=== PATIENT | female | born 2000 | race Asian ===

== ENCOUNTER 2022-01-11 15:58 | Emergency (ER) | payer OTHER ==
[~2022-01-11] VITALS: Ht 162.6 cm; Wt 77.1 kg
[2022-01-11 16:25] VITALS: BP_SYST 124
--- NOTE | 2022-01-11 16:28 | NUR ---
PT TRIAGED AND PLACED IN WAITING ROOM FOR AVAILABLE BED IN MAIN ED
[2022-01-11 17:14] LABS: BILIRUBIN,URINE NEGATIVE (NEGATIVE); BLOOD, URINE 3+ (NEGATIVE); COLOR,URINE YELLOW (YELLOW); GLUCOSE,URINE NEGATIVE (NEGATIVE); KETONES,URINE NEGATIVE (NEGATIVE); LEUKOCYTE ESTERASE ,URINE NEGATIVE (NEGATIVE); NITRITE, URINE NEGATIVE (NEGATIVE); PROTEIN URINE TRACE (NEGATIVE); UROBILINOGEN,URINE 0.2 (0.2-1.0)
[2022-01-11 17:16] LABS: CLARITY/URINE SLIGHTLY HAZY (CLEAR)
--- NOTE | 2022-01-11 17:24 | NUR ---
Patient to ER bed H1 to gown for evaluation. Side rails up.
[2022-01-11 17:25] LABS: BACTERIA,URINE FEW /HPF (None Seen); MUCUS,URINE 2+ /LPF (None Seen); WBC,URINE 0-3 /HPF (0-3)
--- NOTE | 2022-01-11 17:30 | NUR ---
Pt brought by self, A&Ox4, pt presents to ER with intermittent episodes of lower abdominal pain, denies N/V or bleeding, skin pink and warm, cap refill <3, VSS, respirations even and unlabored.
--- NOTE | 2022-01-11 17:37 | NUR ---
DR. NICK EXAMINING PT
[2022-01-11] MEDS ORDERED: MECL-225 PO (17:45)
[2022-01-11] MEDS ORDERED: ONDA-8 TL (17:46)
[2022-01-11 18:13] VITALS: BP_SYST 124
--- NOTE | 2022-01-11 18:14 | NUR ---
Patient given written and verbal discharge instructions and verbalizes understanding. ER MD discussed with patient the results and treatment provided. Patient in stable condition. ID arm band removed. Rx of MECLAZINE AND ZOFRAN given. Patient educated on pain management and to follow up with PMD. Pain Scale 0/10. Opportunity for questions provided and answered. Medication side effect fact sheet provided.
== END 2022-01-11 18:14 | disposition home or self-care (01) ==
LOC: SED 15:58
DX: H81.10 Benign paroxysmal vertigo, unspecified ear (principal); Z79.899 Other long term (current) drug therapy
CPT/HCPCS: 81000; 81025; 99283

== ENCOUNTER 2022-01-22 22:17 | Emergency (ER) | payer OTHER ==
[~2022-01-22] VITALS: Ht 160 cm; Wt 59.9 kg
[~2022-01-22 22:17] MED LIST: MECL-225 PO; ONDA-8 TL
[2022-01-22 22:20] VITALS: BP_SYST 123
[2022-01-22] MEDS: ONDANSETRON 4 MG ODT TAB PO ONE (22:54)
[2022-01-22 23:13] LABS: BILIRUBIN,URINE NEGATIVE (NEGATIVE); BLOOD, URINE NEGATIVE (NEGATIVE); COLOR,URINE YELLOW (YELLOW); GLUCOSE,URINE NEGATIVE (NEGATIVE); KETONES,URINE NEGATIVE (NEGATIVE); LEUKOCYTE ESTERASE ,URINE NEGATIVE (NEGATIVE); NITRITE, URINE NEGATIVE (NEGATIVE); PROTEIN URINE NEGATIVE (NEGATIVE); UROBILINOGEN,URINE 0.2 (0.2-1.0)
[2022-01-22 23:20] LABS: CLARITY/URINE SLIGHTLY HAZY (CLEAR)
[2022-01-22 23:25] LABS: RBC,URINE NONE SEEN /HPF (0-3)
[2022-01-22 23:26] LABS: BACTERIA,URINE FEW /HPF (None Seen); MUCUS,URINE None Seen /LPF (None Seen); YEAST,URINE Moderate /HPF (None Seen)
[2022-01-23] MEDS: FLUCONAZOLE 200 MG TABLET (DIFLUCAN) PO ONE (00:09)
[2022-01-23 00:18] LABS: CALCIUM 9.4 mg/dL (8.4-11.0); CREATININE 0.75 mg/dL (0.55-1.30); POTASSIUM 3.4 mmol/L (3.5-5.1)
[2022-01-23 00:25] LABS: ALBUMIN 3.9 g/dL (3.4-4.8); TOTAL BILIRUBIN 0.2 mg/dL (0.0-1.0)
[2022-01-23 00:33] LABS: BASOPHILS % (AUTO) 0.4 % (0.0-2.0); EOSINOPHILS % (AUTO) 0.5 % (0.0-4.0); HEMATOCRIT 42.9 % (36-48); HEMOGLOBIN 14.6 g/dL (12.0-16.0); LYMPHOCYTES # (AUTO) 1.8 K/uL (1.0-5.5); LYMPHOCYTES % (AUTO) 28.4 % (20.5-51.5); MEAN CORPUSCULAR HEMOGLOBIN 29 pg (27-31); MEAN CORPUSCULAR HGB CONC 34 % (32-36); MEAN CORPUSCULAR VOLUME 84 fL (79.0-98.0); MONOCYTES # (AUTO) 0.6 K/uL (0.0-1.0); MONOCYTES % (AUTO) 8.9 % (1.7-9.3); NEUTROPHILS # (AUTO) 3.9 K/uL (1.8-7.7); NEUTROPHILS % (AUTO) 61.8 % (40.0-70.0); PLATELET COUNT (AUTO) 336 K/uL (130-430); RED BLOOD CELL COUNT(AUTO) 5.12 MIL/uL (4.2-6.2); RED CELL DISTRIBUTION WIDTH 12.1 % (9.0-15.0); WHITE BLOOD COUNT (AUTO) 6.3 K/uL (4.8-10.8)
[2022-01-23] MEDS ORDERED: ONDA-8 TL (01:12)
[2022-01-23 01:17] VITALS: BP_SYST 123
[2022-01-23] MEDS ORDERED: NALOXONE HCL 2 MG/2 ML SYR ONE (09:27)
== END 2022-01-23 01:17 | disposition home or self-care (01) ==
LOC: SED 22:17
DX: B37.3 Candidiasis of vulva and vagina (principal); R11.2 Nausea with vomiting, unspecified; Z79.899 Other long term (current) drug therapy
CPT/HCPCS: 36415; 80053; 81000; 81025; 83690; 85025; 99283; J2310; Q0162

== ENCOUNTER 2022-01-24 08:38 | Emergency (ER) | payer OTHER ==
[~2022-01-24] VITALS: Ht 152.4 cm; Wt 59.0 kg
[2022-01-24 08:40] VITALS: BP_SYST 139
[2022-01-24 10:49] VITALS: BP_SYST 118
== END 2022-01-24 10:51 | disposition home or self-care (01) ==
LOC: SED 08:38
DX: S40.022A Contusion of left upper arm, initial encounter (principal); Z79.899 Other long term (current) drug therapy; V49.59XA Passenger injured in collision with other motor vehicles in traffic accident, initial encounter; Y93.89 Activity, other specified; Y92.89 Other specified places as the place of occurrence of the external cause; Y99.8 Other external cause status
CPT/HCPCS: 71045; 73060-TC; 99284

== ENCOUNTER 2022-01-27 14:50 | Emergency (ER) | payer OTHER ==
[~2022-01-27] VITALS: Ht 149.9 cm; Wt 68.0 kg
[2022-01-27 15:12] VITALS: BP_SYST 139
--- NOTE | 2022-01-27 15:16 | NUR ---
Patient triaged and placed in waiting room. VSS and patient appears in no acute distress at this time. Accompanied by MOTHER, awaiting available bed, and MD notified of need for MSE.
--- NOTE | 2022-01-27 15:20 | NUR ---
Patient to [facility] staples for evaluation.
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
--- NOTE | 2022-01-27 15:26 | NUR ---
ER Dr. James at bedside examining patient.
[2022-01-27 15:32] VITALS: BP_SYST 139
--- NOTE | 2022-01-27 15:32 | NUR ---
Patient given written and verbal discharge instructions and verbalizes understanding. ER MD discussed with patient the results and treatment provided. Patient in stable condition. ID arm band removed. Patient educated on pain management and to follow up with PMD. Pain Scale 0/10 Opportunity for questions provided and answered.
== END 2022-01-27 15:32 | disposition home or self-care (01) ==
LOC: SED 14:50
DX: S30.1XXA Contusion of abdominal wall, initial encounter (principal); V49.88XA Car occupant (driver) (passenger) injured in other specified transport accidents, initial encounter; Y93.89 Activity, other specified; Y92.89 Other specified places as the place of occurrence of the external cause; Y99.8 Other external cause status
CPT/HCPCS: 99281

== ENCOUNTER 2022-03-08 20:35 | Emergency (ER) | payer OTHER ==
[~2022-03-08] VITALS: Ht 149.9 cm; Wt 55.8 kg
[2022-03-08 21:14] VITALS: BP_SYST 146
[2022-03-08] MEDS ORDERED: MECL-108 PO (21:38)
[2022-03-08 21:55] VITALS: BP_SYST 146
== END 2022-03-08 21:40 | disposition home or self-care (01) ==
LOC: SED 20:35
DX: H81.399 Other peripheral vertigo, unspecified ear (principal)
CPT/HCPCS: 99283

== ENCOUNTER 2022-03-10 20:48 | Emergency (ER) | payer OTHER ==
[~2022-03-10] VITALS: Ht 157.5 cm; Wt 77.1 kg
[~2022-03-10 20:48] MED LIST changes: +MECL-108 PO
[2022-03-10 20:50] VITALS: BP_SYST 128
--- NOTE | 2022-03-10 20:50 | NUR ---
Patient to ER bed 5 to gown for evaluation. Side rails up. Report given to ESTEFANY FORTE.
--- NOTE | 2022-03-10 20:51 | NUR ---
Dr Marquez at pt bedside
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
--- NOTE | 2022-03-10 21:09 | NUR ---
EKG PRINTED AND GIVEN TO FOR INTERPRETATION.
[2022-03-10 21:41] LABS: BASOPHILS # (AUTO) 0.1 K/uL (0.0-0.2); BASOPHILS % (AUTO) 1.3 % (0.0-2.0); EOSINOPHILS # (AUTO) 0.1 K/uL (0.0-0.4); EOSINOPHILS % (AUTO) 0.9 % (0.0-4.0); HEMATOCRIT 44.7 % (36-48); HEMOGLOBIN 15.2 g/dL (12.0-16.0); LYMPHOCYTES # (AUTO) 1.8 K/uL (1.0-5.5); LYMPHOCYTES % (AUTO) 22.4 % (20.5-51.5); MEAN CORPUSCULAR HEMOGLOBIN 28 pg (27-31); MEAN CORPUSCULAR HGB CONC 34 % (32-36); MEAN CORPUSCULAR VOLUME 82 fL (79.0-98.0); MONOCYTES # (AUTO) 0.5 K/uL (0.0-1.0); MONOCYTES % (AUTO) 6.7 % (1.7-9.3); NEUTROPHILS # (AUTO) 5.5 K/uL (1.8-7.7); NEUTROPHILS % (AUTO) 68.7 % (40.0-70.0); PLATELET COUNT (AUTO) 300 K/uL (130-430); RED BLOOD CELL COUNT(AUTO) 5.44 MIL/uL (4.2-6.2)
[2022-03-10] MEDS: MECLIZINE HCL 25 MG TABLET (ANITVERT) PO ONE (21:48)
[2022-03-10 21:53] LABS: ANION GAP 6 (5-15); CALCIUM 8.5 mg/dL (8.4-11.0); CHLORIDE 100 mmol/L (98-107); CREATININE 0.81 mg/dL (0.55-1.30); GLUCOSE 102 mg/dL (70-99); POTASSIUM 3.8 mmol/L (3.5-5.1); SODIUM SERUM 136 mmol/L (136-145); UREA NITROGEN, BLOOD 14 mg/dL (8-21)
[2022-03-10] MEDS ORDERED: METOCLOPRAMIDE HCL 10 MG/2 ML VIAL ONE (21:56)
[2022-03-10 21:57] LABS: GFR AFRICAN AMERICAN 113 mL/min (>90)
[2022-03-10 22:02] LABS: ALANINE AMINOTRANSFERASE 34 U/L (12-78); ASPARTATE AMINOTRANSFERASE 17 U/L (10-37); TOTAL BILIRUBIN 0.2 mg/dL (0.0-1.0)
[2022-03-10] MEDS: METOCLOPRAMIDE HCL 10 MG/2 ML VIAL IVP ONE (22:12)
[2022-03-10 22:49] VITALS: BP_SYST 128
--- NOTE | 2022-03-10 22:50 | NUR ---
Patient given written and verbal discharge instructions and verbalizes understanding. ER MD discussed with patient the results and treatment provided. Patient in stable condition. ID arm band removed. No Rx given. Patient educated on pain management and to follow up with PMD. Pain Scale 0/10. Opportunity for questions provided and answered. Medication side effect fact sheet provided.
== END 2022-03-10 22:49 | disposition home or self-care (01) ==
LOC: SED 20:48
DX: R42 Dizziness and giddiness (principal); Z79.899 Other long term (current) drug therapy
CPT/HCPCS: 36415; 70450; 71045; 76376; 80053; 81025; 84484; 85025; 93005; 96374; 99285; J2765; J8597

== ENCOUNTER 2023-03-17 18:49 | Emergency (ER) | payer OTHER, MEDICAID ==
[2023-03-17 19:23] VITALS: BP_SYST 125
--- NOTE | 2023-03-17 19:30 | NUR ---
REPORT GIVEN TO DR LOVE.
[2023-03-17] MEDS ORDERED: ONDANSETRON 4 MG ODT TAB PO ONE (19:45)
--- NOTE | 2023-03-17 19:55 | NUR ---
HCG DONE NEGATIVE.
--- NOTE | 2023-03-17 20:00 | NUR ---
ER at bedside examining patient.
[2023-03-17] MEDS ORDERED: ONDA-8 TL (20:13)
[2023-03-17] MEDS ORDERED: DICY10CA13 PO (20:15)
[2023-03-17] MEDS ORDERED: PEPTAB PO (20:15)
[2023-03-17 20:23] VITALS: BP_SYST 116
--- NOTE | 2023-03-17 20:26 | NUR ---
Patient given written and verbal discharge instructions and verbalizes understanding. ER MD discussed with patient the results and treatment provided. Patient in stable condition. ID arm band removed. IV catheter removed intact and dressing applied, no active bleeding. Rx of DICYCLOMINE,ZOFRAN,BISMUTH given. Patient educated on pain management and to follow up with PMD. Pain Scale . Opportunity for questions provided and answered. Medication side effect fact sheet provided.
== END 2023-03-17 20:23 | disposition home or self-care (01) ==
LOC: SED 18:49
DX: A05.9 Bacterial foodborne intoxication, unspecified (principal); R11.2 Nausea with vomiting, unspecified; Z79.899 Other long term (current) drug therapy
CPT/HCPCS: 99283; Q0162